=== PATIENT | male | born 1945 | race Two or more races ===

== ENCOUNTER 2023-10-03 10:14 | Emergency (ER) | payer OTHER ==
[~2023-10-03] VITALS: Ht 180.3 cm; Wt 90.7 kg
[2023-10-03] MEDS ORDERED: LANTUS SOL100 UNIT/1 SUBCUTANEO (10:29)
[2023-10-03] MEDS ORDERED: OMEPRAZOLE MAGN20 MG PO (10:29)
[2023-10-03] MEDS ORDERED: LASIX40 MG PO (10:29)
[2023-10-03] MEDS ORDERED: ZOLOFT50 MG PO (10:30)
[2023-10-03] MEDS ORDERED: CARAFATE1 GM PO (10:30)
[2023-10-03] MEDS ORDERED: JANUVIA100 MG PO (10:30)
[2023-10-03] MEDS ORDERED: ATACAND4 MG PO (10:31)
[2023-10-03] MEDS ORDERED: NITROGLYCERIN IN 5 % DEXTROSE 250 ML IV SCH (10:45)
[2023-10-03] MEDS ORDERED: FUROsemide 40 MG/4 ML VIAL IV ONE (10:45)
[2023-10-03 11:04] LABS: HEMATOCRIT 33.4 % (39.0-48.0); HEMOGLOBIN 11.2 g/dL (13-16.00); MEAN CELL VOLUME 88.2 fL (80.0-100.00); MEAN CORPUSCULAR HEMOGLOBIN 29.6 pg (27.00-32.0); MEAN CORPUSCULAR HGB CONC 33.6 g/dl (32.0-36.0); PLATELET COUNT 151 K/uL (150-450); RED BLOOD COUNT 3.79 M/uL (4.00-6.00); RED CELL DISTRIBUTION WIDTH 14.4 % (11.5-14.5)
[2023-10-03 11:10] LABS: ABG PH 7.438 (7.35-7.45); ABG PO2 83.8 mmHg (80-100); ABG pCO2 38.4 mmHg (35-45); BASE EXCESS 1.4 mmol/l; BICARBONATE 25.4 mmol/l (23-25); SaO2 96.7 %; Tco2 26.6 mmol/l; o2 21 %
[2023-10-03 11:11] LABS: puncture site BRADIAL RIGHT
[2023-10-03 11:28] LABS: ALBUMIN 3.8 gm/dL (3.4-5.0); BILIRUBIN TOTAL 0.63 mg/dL (0.3-1.2); CALCIUM 9.7 mg/dL (8.5-10.1); CREATININE SERUM 2.63 mg/dL (0.70-1.30); GFR 23.8; GLOBULINA 3.8 G/DL (2.4-3.5); POTASSIUM 4.53 mEq/L (3.5-5.1); TOTAL PROTEIN 7.6 gm/dL (6.4-8.2)
[2023-10-03] MEDS ORDERED: FAMOTIDINE/PF 20 MG in 0.9 % SODIUM CHLORIDE 8 ML IV PUSH STA (12:56)
== END 2023-10-03 14:51 | disposition designated cancer center or children's hospital (05) ==
LOC: ER 10:14
PROVIDERS: General Practice
DX: I11.0 Hypertensive heart disease with heart failure (principal); I50.9 Heart failure, unspecified; Z95.0 Presence of cardiac pacemaker; Z20.822 Contact with and (suspected) exposure to COVID-19; I10 Essential (primary) hypertension; E11.9 Type 2 diabetes mellitus without complications; Z79.4 Long term (current) use of insulin
CPT/HCPCS: 36415; 51702; 71045; 82803; 93041; 96365; 96366; 99285; J1940; J3490